=== PATIENT | female | born 2000 | race Two or more races ===

== ENCOUNTER 2022-01-10 11:20 | Emergency (ER) | payer MEDICAID ==
[~2022-01-10] VITALS: Ht 157.5 cm; Wt 58.1 kg
[2022-01-10] MEDS ORDERED: CEFTRIAXONE 500 MG VIAL IM ONE (12:15)
--- NOTE | 2022-01-10 12:19 | NUR ---
Urine collected and handed to lab staff
[2022-01-10 12:20] LABS: *BILIRUBIN,URIN NEGATIVE (NEGATIVE); *CLARITY,URINE CLEAR (CLEAR); *COLOR,URINE YELLOW (YELLOW); *KETONES,URINE NEGATIVE (NEGATIVE); *UROBILINOGEN,URINE 0.2 E.U./dl (NORMAL); LEUKOCYTE ESTERASE ,URINE NEGATIVE (NEGATIVE); NITRITE, URINE NEGATIVE (NEGATIVE); UGLUCOSE NEGATIVE (NEGATIVE)
[2022-01-10] MEDS ORDERED: CEFTRIAXONE 500 MG VIAL ONE (12:22)
[2022-01-10 12:23] LABS: *BLOOD, URINE TRACE (NEGATIVE); *URINE HCG, QUAL NEG (NEGATIVE)
[2022-01-10 13:25] LABS: BACTERIA,URINE FEW /HPF (NONE SEEN); RBC,URINE 0-3 /HPF (0-3); SQUAMOUS EPITHELIAL CELL,UR FEW /HPF (NONE SEEN); WBC,URINE 0-3 /HPF (0-3)
[2022-01-10 13:28] LABS: *MONOTEST NEGATIVE (NEGATIVE)
--- NOTE | 2022-01-10 13:30 | NUR ---
Pts rapid strep neg, EDMD printed out DC instructions and told pt that we will call her if the other cultures show up positive.
[2022-01-10] MEDS ORDERED: DOXY-326 PO (14:08)
--- NOTE | 2022-01-10 14:25 | NUR ---
Pt given DC instruction and confirmed understanding of after care. VSS, PE WNL, pt otherwise completely healthy with no other med issues. no s/sx of distress present. Pt signed out and ambulated outof dept with steady gait.
--- NOTE | 2022-01-10 19:47 | NUR ---
Pt's throat swabbed for rapid strep assay x2 specimens, plus swabbed for gonorreah culture and PCR using the blue culture swab and the PCR test kit. Throat was swabbed without difficulty and specimens promply sent to lab. Addendum: 01/10/22 at 1950 by SOCORRO Previous note was ment to be posted for 1300
[2022-01-10 19:56] VITALS: BP 96/65
[2022-01-12 04:06] LABS: *GC NAA Negative (Negative); *TRIC.VAG. NAA Negative (Negative)
== END 2022-01-10 19:47 | disposition home or self-care (01) ==
LOC: ER 11:20
DX: J02.9 Acute pharyngitis, unspecified (principal); Z11.3 Encounter for screening for infections with a predominantly sexual mode of transmission; Z72.51 High risk heterosexual behavior
CPT/HCPCS: 99283; 81001; 84703; 86308; 86403; 87070; 36415; 96372; 87491; J0696; A4663